=== PATIENT | female | born 1940 | race Two or more races ===

== ENCOUNTER 2024-10-24 11:31 | Emergency (ER) | payer MEDICARE, SELFPAY ==
[2024-10-24 11:41] VITALS: BP 130/76; PULSE 66; RESP 20; TEMP 36.9; O2SAT 99; BMI 27.8
--- NOTE | 2024-10-24 11:51 | PD.EDARRY ---
ED Arrhythmia Palp. RME/HPI General Chief Complaint: Arrhythmia/Palpitations Stated Complaint: SENT BY PMD FOR IRREGULAR HEART BEAT, HAS PACER Time Seen by Provider: 10/24/24 11:37 Arrival date/time: 10/24/24 11:31 RME / HPI RME / HPI narrative: This section includes all my notes and documentations, including HPI, PE, and ED course.? Curry Phelps MD HPI: 84-year-old female here with several days of palpitation episodes, with no rhyme or reason. Other symptoms can include intense fear, sweating, chills, shaking, trouble breathing, chest pain, stomach pain, nausea, numbness and tingling in the hands and feet and face, confusion, hot flashes, and feeling faint. No other complaints. ROS: All negative except as documented in HPI. Physical Exam: General:? Alert and oriented.? Appears anxious. Eyes:? Conjunctivae and lids clear.? ENT:? No nasal congestion.? Neck:? Supple.? Heart:? RRR.? Lungs:? No respiratory distress.? Good air movement.? No rhonchi, wheezing, rales.?? Abdomen:? Soft and nontender.?? Legs:? No clubbing, cyanosis, edema.? Skin:? Warm and dry.?? Neuro:? Alert and oriented X 3.?? I reviewed all diagnostic test results. My interpretation of the EKG is?sinus rhythm with no acute ST?T changes. My interpretation of the chest x-ray is no acute findings. Blood tests and urine tests?unremarkable, including negative troponin and UTI. At this point, diagnoses include?anxiety and UTI. Treatment here included?Xanax. Significant improvement noted. Prescribe Xanax and cefdinir and recommended more outpatient cardiac workup. Based on my best medical judgment, made decision no further evaluation or treatment indicated at this time.? Patient understands and agrees to the discharge instructions customized and printed, see below. Discharge instructions from Dr. Phelps: 1. After extensive evaluation, there is no life-threatening condition.? Such as heart attack. 2. Your symptoms may be due to underlying stress or anxiety or nerves.? This is fairly common. 3. Take Xanax as needed, mainly at bedtime.? Whether this helps or not will be valuable information to your private doctors. And cefdinir for UTI. 4. See a private doctor on 10/26/2024 for recheck and second opinion. To make sure there is no serious underlying heart condition, ask to help you get more tests for your heart that cannot be done here in the ER.? Such as Holter Monitor (cardiac monitoring at home from a day to even a month), heart stress test (on treadmill or with medication), echocardiogram (imaging of your heart structures), heart catherization (checking for blockages in your heart arteries), and a referral to see a Facilities Maintenance Technician. 5. Seek immediate medical care with worsening or with any concerns.?? Curry Phelps MD Related Data Previous Rx's ?Medication ?Instructions ?Recorded alprazolam 0.25 mg tablet (Xanax) 0.25 mg PO BID PRN anxiety #20 tabs 10/24/24 cefdinir 300 mg capsule 300 mg PO BID #14 caps 10/24/24 Allergies Allergy/AdvReac Type Severity Reaction Status Date / Time No Known Allergies Allergy Verified 10/24/24 11:35 Review of Systems Review of Systems Systems Reviewed: All systems reviewed, normal except as documented Past Medical History Social History SMOKING STATUS: Never smoker ED Exam Narrative Physical exam: As noted in HPI Course Quality Measures none Vital Signs Vital signs: Vital Signs Temperature 98.4 F 10/24/24 11:41 Pulse Rate 66 10/24/24 11:41 Respiratory Rate 20 10/24/24 11:41 Blood Pressure 130/76 10/24/24 11:41 Pulse Oximetry (%) 99 10/24/24 11:41 Oxygen Delivery Method Room Air 10/24/24 11:41 Arrhythmia/Palpitations Patient data External records reviewed:: None (No records for review) Clinical information provided by:: patient and family Social determinants that could affect healthcare access:: none Patient has the following chronic illnesses:: Frequent palpitations How is presenting disease/condition affected by chronic disease/condition?: exacerbated by Evaluation data The following diagnostics were reviewed and interpreted by me:: lab results, radiology exam(s) and EKG tracing(s) (Paced rhythm (60 bpm). Curry Phelps MD) Lab and/or radiology exams considered but not ordered:: None Interpretation Summary: Anxiety Medications / Prescriptions Medications or Prescriptions considered but not ordered:: None Medication administrations:: Xanax Consultations Consultation(s) initiated? (list below): No Diagnosis Differential diagnosis arrhythmia/palpitations: palpitations, anxiety, sinus tachycardia, artial fibrillation, artial flutter, ventricular premature beats, supraventricular tachycardia, ventricular tachycardia and WPW Most likely diagnosis given after review of the tests above:: Anxiety Admission Indicated Admission indicated?: not indicated Explain why admission is indicated or not indicated:: Admission criteria not met Admission Request Was there a request for admission?: No Disposition Plan Disposition Plan: Discharge Discharge Attestation Discharge Attestation: The patient and all family members were given an opportunity to ask questions and understood the discharge instructions. Discharge instructions specifically effects, indications for sooner follow up or return to the emergency department, and the expected course of current diagnosis. Patient condition: Stable Discharge Plan Plan Patient Disposition: HOME (Self Care) Prescriptions/Referrals Prescriptions/Med Rec: New alprazolam [Xanax] 0.25 mg tablet 0.25 mg PO BID PRN (Reason: anxiety) Qty: 20 0RF cefdinir 300 mg capsule 300 mg PO BID Qty: 14 0RF Referrals: No Primary/Family,Physician [Primary Care Provider] - In 1 week Problem List Clinical Impression: Palpitations Patient/Caregiver Discharge Instructions Discharge Activity: activity as tolerated Education Materials: ED Anxiety Reaction, ED Palpitations Additional Instructions: Discharge instructions from Dr. Phelps: 1. After extensive evaluation, there is no life-threatening condition.? Such as heart attack. 2. Your symptoms may be due to underlying stress or anxiety or nerves.? This is fairly common. 3. Take Xanax as needed, mainly at bedtime.? Whether this helps or not will be valuable information to your private doctors. And cefdinir for UTI. 4. See a private doctor on 10/26/2024 for recheck and second opinion. To make sure there is no serious underlying heart condition, ask to help you get more tests for your heart that cannot be done here in the ER.? Such as Holter Monitor (cardiac monitoring at home from a day to even a month), heart stress test (on treadmill or with medication), echocardiogram (imaging of your heart structures), heart catherization (checking for blockages in your heart arteries), and a referral to see a Facilities Maintenance Technician. 5. Seek immediate medical care with worsening or with any concerns.?? Print Language: Cypriot Stand Alone Forms: [facility] Award Info., Patient Portal Info Letter
--- NOTE | 2024-10-24 11:53 | XR_ITS ---
Examination: Upright PA chest single view TECHNIQUE: Upright PA chest single view Exam date and time: October 24, 2024 1224 hours INDICATIONS: Shortness of breath today. FINDINGS: Mild prominence left ventricle Cardiac leads satisfactory position Numerous bilateral subcentimeter pulmonary nodules which may represent granulomas No pneumonia or pulmonary edema IMPRESSION: Numerous bilateral pulmonary nodules which may represent granulomas In the absence of prior chest films recommend 3 month follow-up PA lateral chest
--- NOTE | 2024-10-24 11:53 | EKG_ITS ---
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
[2024-10-24 12:28] LABS: Basophils % (Auto) 0 % (0-2.5); Eosinophils % (Auto) 0 % (0-10); Hematocrit 34.4 % (36.0-46.0); Hemoglobin 11.9 g/dL (12.0-16.0); Immature Granulocytes % (Auto) 0 % (0-0); Immature Granulocytes Auto 0.02 Thou/mm3 (0.00-0.00); Lymphocytes # (Auto) 1.2 Thou/mm3 (1.0-4.8); Lymphocytes % (Auto) 21 % (10-50); Mean Corpuscular HGB Conc 34.6 g/dl (31.0-37.0); Mean Corpuscular Hemoglobin 33.7 pg (25.0-35.0); Mean Corpuscular Volume 98 fL (80-100); Monocytes # (Auto) 0.7 Thou/mm3 (0.0-0.8); Monocytes % (Auto) 12 % (0-12); Neutrophils # (Auto) 3.8 Thou/mm3 (1.8-7.7); Neutrophils % (Auto) 66 % (37-80); Nucleated Red Blood Cell % 0 /100 WBC (0); Platelet Count 290 Thou/mm3 (140-440); RDW Standard Deviation 48.3 fL (36.4-46.3); Red Blood Count 3.53 Miln/mm3 (4.00-5.20); White Blood Count 5.8 Thou/mm3 (3.6-11.0)
[2024-10-24] MEDS: ALPRazoLAM 0.25 MG TABLET PO (12:38)
[2024-10-24 12:51] LABS: Alanine Aminotransferase 19 U/L (10-49); Albumin, Serum 4.2 gm/dL (3.4-4.8); Albumin/Globulin Ratio 1.7 (1.2-2.2); Alkaline Phosphatase 60 U/L (46-116); Anion Gap 7 (7-16); Aspartate Amino Transferase 20 U/L (0-34); BUN/Creatinine Ratio 13 Ratio (12-20); Bilirubin,Total 0.4 mg/dL (0.3-1.2); Blood Urea Nitrogen 13 mg/dL (9-23); Calcium 9.4 mg/dL (8.3-10.6); Calcium (Corrected) 9.4 mg/dL (8.5-10.1); Chloride 101 mMol/L (98-107); Estimated Creatinine Clearance 37.9 mL/min (>60); Globulin 2.5 gm/dL (2.3-3.5); Glucose 99 mg/dL (74-106); Magnesium 2.1 mg/dL (1.6-2.6); Osmolality,Calculated 272 (275-295); Sodium 136 mMol/L (136-145); Thyroid Stimulating Hormone 3.03 uIU/mL (0.55-4.78); Total Protein 6.7 gm/dL (5.7-8.2); Troponin I < 0.020 ng/mL (0.0-0.045); eGFR 56 See Note
[2024-10-24 13:01] LABS: Collection Type, Urine Clean Catch
[2024-10-24 13:06] LABS: Amorphous Crystals,Urine Present (Absent); Bacteria,Urine Rare; Bilirubin,Urine 1+ (Negative); Blood,Urine Negative (Negative); Clarity,Urine Turbid (Clear/Hazy); Color,Urine Yellow (Lt Yel-Yel); Glucose, Urine Negative (Negative); Hyaline Casts,Urine 1 /hpf (0-1); Ketones,Urine Negative (Negative); Leukocyte Esterase,Urine Positive (Negative); Nitrite,Urine Negative (Negative); PH,Urine 7.5 (5.0-7.0); Protein,Urine 1+ (Neg - Trace); RBC,Urine 9 /hpf (0-3); Squamous Epithelial Cell,Urine 6 /hpf (0-5); WBC,Urine 73 /hpf (0-5)
[2024-10-24 13:26] LABS: Culture Indicated,Urine Yes
== END 2024-10-24 13:30 | disposition home or self-care (01) ==
PROVIDERS: Emergency Provider Emergency Medicine
DX: R00.2 Palpitations (principal)
CPT/HCPCS: 36415; 71045; 80053; 81001; 83735; 84443; 84484; 85025; 87077; 87086; 87186; 93005; 99283; A9270